=== PATIENT | male | born 1975 | race Caucasian/White ===

== ENCOUNTER 2024-01-11 19:56 | Emergency (ER) | payer BC ==
[~2024-01-11] VITALS: Ht 177.8 cm; Wt 72.6 kg
[2024-01-11] MEDS ORDERED: AMLODIPINE BESY10 MG PO (20:10)
[2024-01-11] MEDS ORDERED: ATORVASTATIN CA10 M1 PO (20:10)
[2024-01-11] MEDS ORDERED: Ketorolac Tromethamine 60 MG/2 ML VIAL IM ONE (21:30)
[2024-01-11] MEDS ORDERED: NAPROXEN250 MG PO (21:34)
== END 2024-01-11 21:50 | disposition home or self-care (01) ==
LOC: ED 19:56
DX: S86.912A Strain of unspecified muscle(s) and tendon(s) at lower leg level, left leg, initial encounter (principal); Z88.1 Allergy status to other antibiotic agents; Z79.899 Other long term (current) drug therapy; X50.1XXA Overexertion from prolonged static or awkward postures, initial encounter; Y93.89 Activity, other specified; Y92.89 Other specified places as the place of occurrence of the external cause; Y99.8 Other external cause status